=== PATIENT | male | born 1970 | race Caucasian/White ===

== ENCOUNTER 2023-02-06 17:43 | Emergency (ER) | payer BC | END 2023-02-06 18:06 | disposition home or self-care (01) | LOC: VM.ED 17:43 | DX: S61.213A Laceration without foreign body of left middle finger without damage to nail, initial encounter (principal); E78.00 Pure hypercholesterolemia, unspecified; I10 Essential (primary) hypertension; Z87.891 Personal history of nicotine dependence; W45.0XXA Nail entering through skin, initial encounter | CPT/HCPCS: 99282; 99283 ==